=== PATIENT | female | born 1995 | race Caucasian/White ===

== ENCOUNTER 2018-05-08 06:14 | Inpatient (IN) ==
[2018-05-08] MEDS ORDERED: PHENERGAN INJ 25 MG IV PRN ×2 (06:36→12:59)
[2018-05-08] MEDS ORDERED: REGLAN INJ 10 MG VIAL IVP PRN (06:36)
[2018-05-08] MEDS ORDERED: MORPHINE SULFATE INJ 2 MG INJ IVP PRN (06:36)
[2018-05-08] MEDS ORDERED: PITOCIN IVP ONE (06:36)
[2018-05-08] MEDS ORDERED: D5 1/2 NS 1000 ML 1,000 ML IV SCH (06:36)
[2018-05-08] MEDS ORDERED: NUBAIN INJ 200 MG VIAL MULTIDOSE IVP PRN (06:36)
[2018-05-08] MEDS ORDERED: D5LR 1L W PITOCIN 10 UNITS/L 10 UNITS/1,000 ML BAG IV PRN (06:36)
[2018-05-08] MEDS ORDERED: XYLOCAINE 1 % (PLAIN) ONE (06:39)
[2018-05-08] MEDS ORDERED: LR 1000 ML IV 1,000 ML IV ONE (06:39)
[2018-05-08] MEDS ORDERED: D5 1/2 NS 1L W PITOCIN 20 UNITS/L 20 UNITS/1,000 ML BAG IV ONE (06:40)
[2018-05-08] MEDS ORDERED: FENTANYL INJ 100 mcg ONE (06:40)
[2018-05-08] MEDS ORDERED: NAROPIN EPIDURAL 0.2% + FENTANYL 90MCG 60 ML EPI ONE (06:40)
[2018-05-08] MEDS ORDERED: ADRENALINE CHL INJ ONE (06:40)
[2018-05-08] MEDS ORDERED: NS 1000 ML 1,000 ML ONE (07:02)
--- NOTE | 2018-05-08 07:25 | DR.OB ---
OB Quick Note - Assessment/Plan Assessment/Plan: L&D 05/08/18 at 6:55am S-No complaint. O-Afebrile,VSS HTL=616 with good LTV, +accel, no decel. CTX=mild, occasional CVX=2cm/50%/-1/VTX AROM with thick meconium. IUPC and FSE placed. A-IUP at 39 1/7 weeks for induction P-Begin pitocin induction Amnio infusion Anticipate
--- NOTE | 2018-05-08 11:43 | DR.OB ---
OB Quick Note - Assessment/Plan Assessment/Plan: L&D 05/08/18 at 11:40am Pitocin=18mu/min. S-No complaint. s/p epidural. O-Afebrile,VSS SKQ=475 with good LTV, +accel, no decel. CTX=q 1 1/2 to 2 min., about 45-55mmHg CVX=4cm/75%/0 A-IUP at 39 1/7 weeks for induction P-Cont. pitocin induction Anticipate
[2018-05-08] MEDS: D5 1/2 NS 1000 ML 1,000 ML with PITOCIN 20 UNITS IV SCH ×2 (12:49)
--- NOTE | 2018-05-08 12:59 | DR.OB ---
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 Head delivered over intact perineum. Nuchal cord x 1 reduced. Nose and mouth bulb suctioned. Body delivered over intact perineum. Cord clamped x 2 and cut. Infant handed to attendant. Cord sent for gases. Placenta delivered spontaneously / intact / 3 vessel cord. No CVX / vaginal / perineal tears. Viable female infant, VTX/OA, wt=6'8" and 9/9 , stable to NBN. Mother stable to RR. THQ=157yc.
[2018-05-08] MEDS ORDERED: MILK OF MAGNESIA PO PRN (14:07)
[2018-05-08] MEDS ORDERED: DERMOPLAST SPRAY TOP PRN (14:07)
[2018-05-08] MEDS ORDERED: ADACEL or BOOSTRIX TDaP VACCINE IM ONE (14:07)
[2018-05-08] MEDS ORDERED: AMBIEN PO PRN (14:07)
[2018-05-08] MEDS: MOTRIN TAB 800 MG PO PRN ×2 (16:00→18:07)
[2018-05-08] MEDS: ZANTAC PO SCH (20:40)
[2018-05-09] MEDS: D5 1/2 NS 1000 ML 1,000 ML with PITOCIN 20 UNITS IV SCH ×4 (00:24→06:00)
[2018-05-09 04:16] LABS: HEMATOCRIT 35.8 % (36.0-47.0); HEMOGLOBIN 12.3 g/dL (12.0-16.0)
[2018-05-09] MEDS: ZANTAC PO SCH (08:01)
[2018-05-09] MEDS: MOTRIN TAB 800 MG PO PRN (08:01)
[2018-05-09] MEDS ORDERED: PRENATAL PLUS PO SCH (09:00)
[2018-05-09 12:09] VITALS: BP 123/78
== END 2018-05-09 15:05 | disposition home or self-care (01) | DRG 775 ==
LOC: LD 06:14 → MED/SURG 14:09
PROVIDERS: ADMIT Specialist; ATTEND Specialist
DX: O99.613 Diseases of the digestive system complicating pregnancy, third trimester; Z23 Encounter for immunization; Z01.818 Encounter for other preprocedural examination; Z37.0 Single live birth; Z3A.39 39 weeks gestation of pregnancy
CPT/HCPCS: 36415; 59409; 80048; 80307; 81001; 85014; 85018; 85025; 86592; 86850; 86900; 86901; 90715; 92585; A4216; A4222; S0197; G0434; J0171; J2590; J3010; J7030; J7120; S5010

== ENCOUNTER 2021-11-20 06:20 | Inpatient (IN) ==
[2021-11-20] MEDS ORDERED: D5 1/2 NS 1,000 ML 1,000 ML IV ONE (06:38)
[2021-11-20] MEDS ORDERED: PITOCIN ONE (06:38)
[2021-11-20] MEDS ORDERED: BETADINE SOLN ONE (06:38)
[2021-11-20] MEDS ORDERED: D5 1/2 NS 1,000 mL + PITOCIN 20 UNITS/L IV 20 UNITS/1,000 ML BAG IV ONE (06:39)
[2021-11-20] MEDS ORDERED: D5 LR + PITOCIN 10 UNITS/L 10 UNITS/1,000 ML BAG IV ONE (06:39)
--- NOTE | 2021-11-20 07:18 | DR.OB ---
OB Quick Note - Assessment/Plan Assessment/Plan: L&D 11/20/21 at 7:05am S-No complaint. O-Afebrile,VSS YDA=822 with good LTV, +accel, no decel. CTX=none CVX=3cm/50%/0/VTX AROM with moderate meconium. IUPC and FSE placed. A-IUP at 39 0/7 weeks for induction Multiparity Desiring Permanent Sterilization GERD Bipolar D.O. P-Begin pitocin induction Anticipate with PP BTL as desired
[2021-11-20] MEDS ORDERED: MORPHINE SULFATE INJ 2 MG INJ IVP PRN (07:26)
[2021-11-20] MEDS ORDERED: PITOCIN IVP ONE (07:26)
[2021-11-20] MEDS ORDERED: D5 1/2 NS 1,000 ML 1,000 ML IV SCH (07:26)
[2021-11-20] MEDS ORDERED: NUBAIN INJ 200 MG VIAL MULTIDOSE IVP PRN (07:26)
[2021-11-20] MEDS ORDERED: PHENERGAN INJ 25 MG IM PRN ×2 (07:26→12:48)
[2021-11-20] MEDS ORDERED: D5 LR + PITOCIN 10 UNITS/L 10 UNITS/1,000 ML BAG IV PRN (07:26)
[2021-11-20] MEDS ORDERED: REGLAN INJ 10 MG VIAL IVP PRN (07:26)
[2021-11-20] MEDS ORDERED: STADOL INJ IVP PRN (07:28)
[2021-11-20 07:56] LABS: BASOPHILS % (AUTO) 0.3 % (0.2-1.0); EOSINOPHILS # (AUTO) 0.1 x10^3/uL (0.0-0.2); EOSINOPHILS % (AUTO) 0.7 % (0.9-2.9); HEMATOCRIT 34.3 % (36.0-47.0); HEMOGLOBIN 11.6 g/dL (12.0-16.0); LYMPHOCYTES # (AUTO) 1.8 X10^3/uL (1.3-2.9); LYMPHOCYTES % (AUTO) 15.4 % (21.0-51.0); MEAN CORPUSCULAR HEMOGLOBIN 27.6 pg (27.0-34.0); MEAN CORPUSCULAR HGB CONC 33.8 g/dL (33.0-35.0); MEAN CORPUSCULAR VOLUME 81.4 fL (80.0-100.0); MEAN PLATELET VOLUME 9.2 fL (7.4-11.0); MONOCYTES # (AUTO) 0.5 x10^3/uL (0.3-0.8); MONOCYTES % (AUTO) 4.4 % (0.0-13.0); NEUTROPHILS % (AUTO) 79.2 % (42.0-75.0); RED BLOOD COUNT 4.21 X10^6/uL (3.5-5.4); RED CELL DISTRIBUTION WIDTH 12.5 % (11.6-16.5); WHITE BLOOD COUNT 11.4 X10^3/uL (3.6-10.0)
[2021-11-20 08:02] LABS: BLOOD UREA NITROGEN 6 mg/dL (7-18); CALCIUM 8.3 mg/dL (8.5-10.1); CARBON DIOXIDE 27.2 mmol/L (21-32); CHLORIDE 103 mmol/L (98-107); CREATININE 0.56 mg/dL (0.55-1.02); SODIUM 136 mmol/L (136-145); eGFR NON BLACK RACES > 60 (>60)
[2021-11-20 08:26] LABS: APPEARANCE,URINE CLOUDY (CLEAR); BILIRUBIN,URINE 1+ (NEGATIVE); BLOOD/HEMOGLOBIN,URINE 1+ (NEGATIVE); COLOR,URINE DARK YELLOW (YELLOW); GLUCOSE, URINE NEGATIVE (NEGATIVE); KETONES,URINE NEGATIVE (NEGATIVE); LEUKOCYTE ESTERASE ,URINE 3+ (NEGATIVE); NITRITES,URINE NEGATIVE (NEGATIVE); PH,URINE 6.5 (5.0 - 8.0); PROTEIN,URINE 2+ (NEGATIVE); UROBILINOGEN,URINE 3+ (NORMAL)
[2021-11-20 08:27] LABS: BACTERIA,URINE 1+ /HPF (NEGATIVE); SQUAMOUS EPITHELIAL CELL,UR NUMEROUS /HPF (NEGATIVE)
[2021-11-20] MEDS ORDERED: LR 1,000 ML IV 1,000 ML IV ONE ×2 (08:41→12:04)
[2021-11-20] MEDS ORDERED: FENTANYL VIAL INJ 100 mcg ONE (08:41)
[2021-11-20] MEDS ORDERED: NAROPIN EPIDURAL 0.2% 100 ML ONE (08:42)
[2021-11-20] MEDS ORDERED: EPHEDRINE SULFATE INJ ONE (09:10)
[2021-11-20] MEDS ORDERED: ANCEF VIAL 1 GRAM ONE (12:04)
[2021-11-20] MEDS ORDERED: NS 100 ML IV 100 ML ONE (12:06)
[2021-11-20] MEDS ORDERED: LIDOCAINE 2%-EPI 1:200,000 ONE (12:32)
[2021-11-20] MEDS ORDERED: MOTRIN TAB 800 MG PO PRN (12:48)
--- NOTE | 2021-11-20 12:48 | DR.OB ---
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 Head delivered over intact perineum. No nuchal cord. Nose and mouth bulb suctioned. Body delivered over intact perineum. Cord clamped x 2 and cut. Infant handed to attendant. Cord sent for gases. Placenta delivered spontaneously / intact / 3 vessel cord. No CVX / vaginal / perineal tears. Viable female , VTX/OA, wt=7'11" and 8/9, stable to NBN. Mother stable to RR. HPK=135ug.
[2021-11-20] MEDS ORDERED: DIPRIVAN VIAL ONE (13:14)
[2021-11-20] MEDS ORDERED: TORADOL 30 MG VIAL ONE (13:14)
[2021-11-20] MEDS ORDERED: VERSED ONE (13:14)
[2021-11-20] MEDS ORDERED: KETAMINE HCL ONE (13:44)
[2021-11-20] MEDS ORDERED: OFIRMEV IV 1000 MG VIAL 1,000 MG/100 ML VIAL IV ONE (14:21)
[2021-11-20] MEDS ORDERED: AMBIEN PO PRN ×2 (15:06)
[2021-11-20] MEDS ORDERED: MILK OF MAGNESIA PO PRN ×2 (15:06)
[2021-11-20] MEDS ORDERED: DERMOPLAST PAIN RELIEF SPRAY TOP PRN (15:06)
[2021-11-20] MEDS ORDERED: ADACEL or BOOSTRIX TDaP VACCINE IM ONE (15:06)
[2021-11-20] MEDS ORDERED: PERCOCET TAB 5/325 MG PO PRN (15:06)
[2021-11-20] MEDS ORDERED: MYLICON TAB 80 MG CHEW PO PRN (15:06)
[2021-11-20] MEDS: D5 1/2 NS 1,000 ML 1,000 ML with PITOCIN 20 UNITS IV SCH ×4 (15:07→22:51)
[2021-11-21 05:24] LABS: HEMATOCRIT 34.1 % (36.0-47.0); HEMOGLOBIN 11.4 g/dL (12.0-16.0)
[2021-11-21] MEDS: D5 1/2 NS 1,000 ML 1,000 ML with PITOCIN 20 UNITS IV SCH ×4 (06:45→14:34)
[2021-11-21] MEDS: BACTROBAN TOPICAL OINT TOP SCH ×2 (08:12→14:34)
[2021-11-21] MEDS ORDERED: PRENATAL PLUS PO SCH (09:00)
[2021-11-21] MEDS ORDERED: PROzac PO SCH (09:00)
[2021-11-21 15:30] VITALS: BP 112/65
== END 2021-11-21 15:40 | disposition home or self-care (01) | DRG 797 ==
LOC: LD 06:20 → MED/SURG 14:42
PROVIDERS: ADMIT Specialist; ATTEND Specialist
DX: Z30.2 Encounter for sterilization; O99.343 Other mental disorders complicating pregnancy, third trimester; Z37.0 Single live birth; K21.9 Gastro-esophageal reflux disease without esophagitis; O99.613 Diseases of the digestive system complicating pregnancy, third trimester; F31.89 Other bipolar disorder; Z3A.39 39 weeks gestation of pregnancy